=== PATIENT | female | born 1985 | race Two or more races ===

== ENCOUNTER 2023-11-24 06:14 | Day surgery (SDC) | payer OTHER ==
[2023-11-18 11:24] LABS: HEMATOCRIT 39.9 % (36.0-45.00); HEMOGLOBIN 13.5 g/dL (12.0-15.00); MEAN CORPUSCULAR HEMOGLOBIN 28.8 pg (27.00-32.0); MEAN CORPUSCULAR HGB CONC 33.9 g/dl (32.0-36.0); PLATELET COUNT 424 K/uL (150-450); RED CELL DISTRIBUTION WIDTH 13.8 % (11.5-14.5)
[2023-11-18 12:25] LABS: ALBUMIN 3.5 gm/dL (3.4-5.0); BILIRUBIN TOTAL 0.23 mg/dL (0.3-1.2); CREATININE SERUM 0.79 mg/dL (0.55-1.02); GFR 81.45; GLOBULINA 3.5 G/DL (2.4-3.5); POTASSIUM 4.54 mEq/L (3.5-5.1)
[2023-11-18 12:27] LABS: INR < 0.93; PARTIAL THROMBOPLASTIN TIME 32.4 SECONDS (22.0-34.0); PROTHROMBIN TIME 10.2 SECONDS (9.0-11.5)
[~2023-11-24 06:14] MED LIST: ARIPIPRAZOLE 7 MG; LEXAPRO20 MG; WELLBUTRIN
[2023-11-24] MEDS ORDERED: POVIDONE-IODINE 118 ML BOTT TOP ONE (08:15)
[2023-11-24] MEDS ORDERED: METHYLENE BLUE 50MG/10ML AMP IV ONE (08:15)
[2023-11-24] MEDS ORDERED: PROMETHAZINE HCL 50 MG/ML AMPUL IM ONE (11:00)
[2023-11-24] MEDS ORDERED: MORPHINE SULFATE 4 MG/ML VIAL IV PRN (11:00)
[2023-11-24] MEDS ORDERED: ONDANSETRON HCL 2 MG/ML VIAL IV ONE (11:10)
[2023-11-24] MEDS ORDERED: SUGAMMADEX SODIUM 200 MG/2 ML VIAL IV ONE (11:30)
== END 2023-11-24 13:00 | disposition home or self-care (01) ==
LOC: CIR.AMB 06:14
PROVIDERS: ATTEND Obstetrics & Gynecology
DX: N70.11 Chronic salpingitis (principal); R10.2 Pelvic and perineal pain; N97.9 Female infertility, unspecified; Z88.1 Allergy status to other antibiotic agents; Z88.0 Allergy status to penicillin; F41.8 Other specified anxiety disorders